=== PATIENT | female | born 1995 | race Caucasian/White ===

== ENCOUNTER 2017-11-29 14:53 | Emergency (ER) | payer SELFPAY ==
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
[2017-11-29] MEDS ORDERED: Ibuprofen 600 MG Tab PO ONE (15:15)
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
== END 2017-11-29 15:35 | disposition home or self-care (01) ==
LOC: FB.ED 14:53
DX: S90.31XA Contusion of right foot, initial encounter (principal); X58.XXXA Exposure to other specified factors, initial encounter
CPT/HCPCS: 73630; 99283; A9270